=== PATIENT | male | born 1940 | race Caucasian/White ===

== ENCOUNTER 2021-09-20 16:10 | Inpatient (IN) ==
[2021-09-20] MEDS ORDERED: *HR* OxyCODONE Immed Rel 5 MG TABLET PO PRN (17:48)
[2021-09-20] MEDS: CARBIDOPA PO SCH ×2 (18:03→21:08)
[2021-09-20] MEDS: LEVODOPA PO SCH ×2 (18:03→21:08)
[2021-09-20] MEDS ORDERED: Melatonin 3 MG TABLET PO SCH (21:00)
[2021-09-20] MEDS ORDERED: Carbidopa/Levodopa [Rytary Er 36.25 Mg-145 Mg Cap] PO SCH (21:00)
[2021-09-20] MEDS: Apixaban 2.5 MG TABLET PO SCH (21:08)
[2021-09-20] MEDS: Acetaminophen 325 MG TABLET PO PRN (21:18)
[2021-09-21] MEDS: Acetaminophen 325 MG TABLET PO PRN ×2 (03:31→21:00)
[2021-09-21 04:55] LABS: Basophils % 0.4 %; Eosinophils # 0.3 K/mcL (0.0-0.6); Eosinophils % 2.5 %; Hemoglobin 11.9 g/dL (12.9-16.9); Immature Granulocytes % 1.1 % (0-4); Lymphocytes # 1.3 K/mcL (0.6-4.6); Lymphocytes % 12.3 %; Mean Corpuscular HGB Conc 33.1 g/dL (31.6-35.5); Mean Corpuscular Hemoglobin 31.2 pg (28.0-33.3); Mean Corpuscular Volume 94.5 fL (83.0-100.0); Monocytes # 1.3 K/mcL (0.0-1.3); Neutrophils # 7.2 K/mcL (1.6-8.9); Platelet Count 277 K/mcL (140-400); Red Blood Count 3.81 M/mcL (4.19-5.50); Red Cell Distribution Width 12.9 % (11.5-14.5); Segmented Neutrophils % 70.7 %; White Blood Count 10.2 K/mcL (4.3-11.1)
[2021-09-21 05:07] LABS: BUN/Creatinine Ratio 38 (6-26); Blood Urea Nitrogen 26 mg/dL (8-23); Calcium 8.5 mg/dL (8.6-10.3); Carbon Dioxide 27 mEq/L (23-29); Chloride 104 mEq/L (98-107); Glucose 111 mg/dL (70-105); Osmolality,Calculated 293 (280-300); Potassium 3.8 mEq/L (3.5-5.1); Sodium 139 mEq/L (136-145); eGFR For African Americans > 60 (> 60); eGFR For Non-African Americans > 60 (> 60)
[2021-09-21] MEDS: CARBIDOPA PO SCH ×4 (08:46→21:00)
[2021-09-21] MEDS: Apixaban 2.5 MG TABLET PO SCH ×2 (08:46→21:00)
[2021-09-21] MEDS: LEVODOPA PO SCH ×4 (08:46→21:00)
[2021-09-21] MEDS: Mirabegron [Myrbetriq] 50 MG Tab.Er.24h PO SCH (08:48)
[2021-09-21] MEDS ORDERED: Melatonin 3 MG TABLET PO SCH (21:00)
[2021-09-21] MEDS: MELATONIN 5MG GUMMY PO SCH (21:02)
[2021-09-22] MEDS: Acetaminophen 325 MG TABLET PO PRN ×3 (06:48→19:57)
[2021-09-22] MEDS: Apixaban 2.5 MG TABLET PO SCH ×2 (08:41→19:57)
[2021-09-22] MEDS: LEVODOPA PO SCH ×4 (08:42→19:58)
[2021-09-22] MEDS: CARBIDOPA PO SCH ×4 (08:42→19:58)
[2021-09-22] MEDS: Mirabegron [Myrbetriq] 50 MG Tab.Er.24h PO SCH (08:44)
[2021-09-22] MEDS: MELATONIN 5MG GUMMY PO SCH (19:59)
[2021-09-23] MEDS: Acetaminophen 325 MG TABLET PO PRN ×2 (05:07→17:28)
[2021-09-23] MEDS: CARBIDOPA PO SCH ×4 (08:43→23:00)
[2021-09-23] MEDS: LEVODOPA PO SCH ×4 (08:43→23:00)
[2021-09-23] MEDS: Apixaban 2.5 MG TABLET PO SCH ×2 (08:43→22:01)
[2021-09-23] MEDS: Mirabegron [Myrbetriq] 50 MG Tab.Er.24h PO SCH (08:44)
[2021-09-23] MEDS: MELATONIN 5MG GUMMY PO SCH (22:03)
[2021-09-24 08:56] LABS: Hematocrit 39.1 % (37.5-50.1); Hemoglobin 12.5 g/dL (12.9-16.9); Mean Corpuscular Hemoglobin 30.7 pg (28.0-33.3); Mean Corpuscular Volume 96.1 fL (83.0-100.0); Mean Platelet Volume 9.7 fL (9.4-12.4); Platelet Count 388 K/mcL (140-400); Red Blood Count 4.07 M/mcL (4.19-5.50); Red Cell Distribution Width 12.7 % (11.5-14.5); White Blood Count 10.5 K/mcL (4.3-11.1)
[2021-09-24 09:08] LABS: Alanine Aminotransferase 12 Units/L (7-52); Albumin 3.1 g/dL (3.5-5.7); Albumin/Globulin Ratio 0.9 (1.1-2.2); Alkaline Phosphatase 198 Units/L (34-104); Aspartate Amino Transferase 61 Units/L (13-39); BUN/Creatinine Ratio 32 (6-26); Bilirubin,Total 0.6 mg/dL (0.3-1.0); Blood Urea Nitrogen 19 mg/dL (8-23); Calcium 8.9 mg/dL (8.6-10.3); Carbon Dioxide 30 mEq/L (23-29); Chloride 101 mEq/L (98-107); Globulin 3.4 g/dL (2.4-3.5); Glucose 104 mg/dL (70-105); Osmolality,Calculated 293 (280-300); Potassium 3.8 mEq/L (3.5-5.1); Sodium 140 mEq/L (136-145); Total Protein 6.5 g/dL (6.4-8.9); eGFR For African Americans > 60 (> 60); eGFR For Non-African Americans > 60 (> 60)
[2021-09-24] MEDS: CARBIDOPA PO SCH ×4 (09:25→19:27)
[2021-09-24] MEDS: Apixaban 2.5 MG TABLET PO SCH ×2 (09:25→19:27)
[2021-09-24] MEDS: LEVODOPA PO SCH ×4 (09:25→19:27)
[2021-09-24] MEDS: Mirabegron [Myrbetriq] 50 MG Tab.Er.24h PO SCH (09:27)
[2021-09-24] MEDS: MELATONIN 5MG GUMMY PO SCH (19:27)
[2021-09-24] MEDS: Acetaminophen 325 MG TABLET PO PRN (19:27)
[2021-09-24 20:22] LABS: Bilirubin,Urine Negative (Negative); Blood,Urine Negative (Negative); Clarity,Urine Clear (Clear); Color,Urine Yellow (Yellow); Glucose,Urine (UA) 100 mg/dL (Normal); Ketones,Urine Trace mg/dL (Negative); Leukocyte Esterase,Urine Negative (Negative); Nitrite,Urine Negative (Negative); PH,Urine 5.5 pH Units (5.0-8.0); Protein,Urine Negative (Neg-Trace); Urobilinogen,Urine Normal (Normal)
[2021-09-25] MEDS: Apixaban 2.5 MG TABLET PO SCH ×2 (09:11→20:45)
[2021-09-25] MEDS: CARBIDOPA PO SCH ×4 (09:14→20:46)
[2021-09-25] MEDS: LEVODOPA PO SCH ×4 (09:14→20:46)
[2021-09-25] MEDS: Acetaminophen 325 MG TABLET PO PRN (20:45)
[2021-09-25] MEDS: MELATONIN 5MG GUMMY PO SCH (20:51)
[2021-09-26] MEDS: Apixaban 2.5 MG TABLET PO SCH ×2 (08:29→21:32)
[2021-09-26] MEDS: Acetaminophen 325 MG TABLET PO PRN ×2 (08:30→21:31)
[2021-09-26] MEDS: Mirabegron [Myrbetriq] 50 MG Tab.Er.24h PO SCH (08:31)
[2021-09-26] MEDS: CARBIDOPA PO SCH ×4 (08:31→21:33)
[2021-09-26] MEDS: LEVODOPA PO SCH ×4 (08:31→21:33)
[2021-09-26] MEDS: MELATONIN 5MG GUMMY PO SCH (21:32)
[2021-09-27] MEDS: CARBIDOPA PO SCH ×4 (07:19→21:59)
[2021-09-27] MEDS: LEVODOPA PO SCH ×4 (07:19→21:59)
[2021-09-27] MEDS: Apixaban 2.5 MG TABLET PO SCH ×2 (07:19→21:58)
[2021-09-27] MEDS: Mirabegron [Myrbetriq] 50 MG Tab.Er.24h PO SCH (10:34)
[2021-09-27] MEDS: Finasteride 5 MG TABLET PO SCH (12:51)
[2021-09-27] MEDS: MELATONIN 5MG GUMMY PO SCH (21:59)
[2021-09-28] MEDS: Finasteride 5 MG TABLET PO SCH (08:45)
[2021-09-28] MEDS: CARBIDOPA PO SCH ×4 (08:46→22:22)
[2021-09-28] MEDS: LEVODOPA PO SCH ×4 (08:46→22:22)
[2021-09-28] MEDS: Apixaban 2.5 MG TABLET PO SCH ×2 (08:46→22:03)
[2021-09-28] MEDS: Mirabegron [Myrbetriq] 50 MG Tab.Er.24h PO SCH (08:49)
[2021-09-28] MEDS: Acetaminophen 325 MG TABLET PO PRN (22:15)
[2021-09-28] MEDS: MELATONIN 5MG GUMMY PO SCH (22:22)
[2021-09-29] MEDS: Nystatin POWDER 30 GM BOTTLE TP SCH ×4 (02:09→20:34)
[2021-09-29] MEDS: Acetaminophen 325 MG TABLET PO PRN (08:47)
[2021-09-29] MEDS: Finasteride 5 MG TABLET PO SCH (08:47)
[2021-09-29] MEDS: Apixaban 2.5 MG TABLET PO SCH ×2 (08:48→20:33)
[2021-09-29] MEDS: CARBIDOPA PO SCH ×4 (08:50→20:35)
[2021-09-29] MEDS: LEVODOPA PO SCH ×4 (08:50→20:35)
[2021-09-29] MEDS: Mirabegron [Myrbetriq] 50 MG Tab.Er.24h PO SCH (08:52)
[2021-09-29] MEDS ORDERED: *HR* OxyCODONE Immed Rel 5 MG TABLET PO PRN (15:48)
[2021-09-29 16:09] LABS: Basophils # 0.1 K/mcL (0.0-0.2); Basophils % 0.5 %; Eosinophils # 0.4 K/mcL (0.0-0.6); Eosinophils % 3.2 %; Hematocrit 36.9 % (37.5-50.1); Hemoglobin 11.8 g/dL (12.9-16.9); Immature Granulocytes % 3.5 % (0-4); Lymphocytes # 1.9 K/mcL (0.6-4.6); Lymphocytes % 17.6 %; Mean Corpuscular Volume 96.9 fL (83.0-100.0); Mean Platelet Volume 9.4 fL (9.4-12.4); Monocytes # 0.7 K/mcL (0.0-1.3); Monocytes % 6.4 %; Neutrophils # 7.4 K/mcL (1.6-8.9); Platelet Count 408 K/mcL (140-400); Red Blood Count 3.81 M/mcL (4.19-5.50); Red Cell Distribution Width 13.2 % (11.5-14.5); Segmented Neutrophils % 68.8 %; White Blood Count 10.8 K/mcL (4.3-11.1)
[2021-09-29 16:27] LABS: BUN/Creatinine Ratio 26 (6-26); Blood Urea Nitrogen 22 mg/dL (8-23); Calcium 9.2 mg/dL (8.6-10.3); Carbon Dioxide 31 mEq/L (23-29); Chloride 101 mEq/L (98-107); Glucose 113 mg/dL (70-105); Osmolality,Calculated 288 (280-300); Potassium 4.5 mEq/L (3.5-5.1); Sodium 137 mEq/L (136-145); eGFR For African Americans > 60 (> 60); eGFR For Non-African Americans > 60 (> 60)
[2021-09-29] MEDS: MELATONIN 5MG GUMMY PO SCH (20:35)
[2021-09-30] MEDS: Apixaban 2.5 MG TABLET PO SCH ×2 (09:12→21:01)
[2021-09-30] MEDS: Finasteride 5 MG TABLET PO SCH (09:13)
[2021-09-30] MEDS: Nystatin POWDER 30 GM BOTTLE TP SCH ×3 (09:13→21:02)
[2021-09-30] MEDS: CARBIDOPA PO SCH ×4 (09:14→21:01)
[2021-09-30] MEDS: LEVODOPA PO SCH ×4 (09:14→21:01)
[2021-09-30] MEDS: Mirabegron [Myrbetriq] 50 MG Tab.Er.24h PO SCH (09:15)
[2021-09-30] MEDS: Acetaminophen 325 MG TABLET PO PRN (21:01)
[2021-09-30] MEDS: MELATONIN 5MG GUMMY PO SCH (21:02)
[2021-10-01] MEDS: CARBIDOPA PO SCH ×4 (08:49→19:49)
[2021-10-01] MEDS: Apixaban 2.5 MG TABLET PO SCH ×2 (08:49→19:47)
[2021-10-01] MEDS: LEVODOPA PO SCH ×4 (08:49→19:49)
[2021-10-01] MEDS: Finasteride 5 MG TABLET PO SCH (08:49)
[2021-10-01] MEDS: Mirabegron [Myrbetriq] 50 MG Tab.Er.24h PO SCH (08:50)
[2021-10-01] MEDS: Nystatin POWDER 30 GM BOTTLE TP SCH ×3 (08:50→19:49)
[2021-10-01 13:54] LABS: Bilirubin,Urine Negative (Negative); Blood,Urine Small (Negative); Clarity,Urine Clear (Clear); Color,Urine Yellow (Yellow); Glucose,Urine (UA) Normal (Normal); Ketones,Urine Trace mg/dL (Negative); Leukocyte Esterase,Urine Negative (Negative); Nitrite,Urine Negative (Negative); Protein,Urine Negative (Neg-Trace); Urobilinogen,Urine Normal (Normal)
[2021-10-01 14:09] LABS: WBC,Urine 0-3 per hpf (0-3)
[2021-10-01 14:10] LABS: Bacteria,Urine Few per hpf (None-Few); Squamous Epithelial Cell,Urine Few per hpf (None-Few)
[2021-10-01 14:12] LABS: Calcium Oxalate Crystals,Urine Present per hpf
[2021-10-01] MEDS: Polymyxn-B/Trimeth Opth Drops 10 ML BOTTLE LEFT EYE SCH ×2 (16:06→19:50)
[2021-10-01] MEDS: Acetaminophen 325 MG TABLET PO PRN (19:47)
[2021-10-01] MEDS: MELATONIN 5MG GUMMY PO SCH (19:49)
[2021-10-02] MEDS: Finasteride 5 MG TABLET PO SCH (08:44)
[2021-10-02] MEDS: Apixaban 2.5 MG TABLET PO SCH ×2 (08:44→20:18)
[2021-10-02] MEDS: Mirabegron [Myrbetriq] 50 MG Tab.Er.24h PO SCH (08:45)
[2021-10-02] MEDS: Nystatin POWDER 30 GM BOTTLE TP SCH ×3 (08:45→20:19)
[2021-10-02] MEDS: Polymyxn-B/Trimeth Opth Drops 10 ML BOTTLE LEFT EYE SCH ×2 (08:45→12:16)
[2021-10-02] MEDS ORDERED: CARBIDOPA PO SCH (09:00)
[2021-10-02] MEDS ORDERED: LEVODOPA PO SCH (09:00)
[2021-10-02] MEDS: CARBIDOPA PO SCH ×3 (12:16→20:20)
[2021-10-02] MEDS: LEVODOPA PO SCH ×3 (12:16→20:20)
[2021-10-02] MEDS: Polymyxn-B/Trimeth Opth Drops 10 ML BOTTLE BOTH EYES SCH ×2 (17:08→20:20)
[2021-10-02] MEDS: Sennosides/Docusate Sodium TABLET PO SCH ×2 (17:08→20:18)
[2021-10-02 18:04] LABS: % Iron Saturation 15 % (20-55); Iron 44 mcg/dL (65-175); Transferrin 206 mg/dL (203-362)
[2021-10-02] MEDS: MELATONIN 5MG GUMMY PO SCH (20:20)
[2021-10-03] MEDS: LEVODOPA PO SCH ×4 (05:49→23:09)
[2021-10-03] MEDS: CARBIDOPA PO SCH ×4 (05:49→23:09)
[2021-10-03] MEDS: Apixaban 2.5 MG TABLET PO SCH ×2 (08:34→23:08)
[2021-10-03] MEDS: Sennosides/Docusate Sodium TABLET PO SCH ×2 (08:35→18:47)
[2021-10-03] MEDS: Finasteride 5 MG TABLET PO SCH (08:35)
[2021-10-03] MEDS: Polymyxn-B/Trimeth Opth Drops 10 ML BOTTLE BOTH EYES SCH ×4 (08:36→23:09)
[2021-10-03] MEDS: Mirabegron [Myrbetriq] 50 MG Tab.Er.24h PO SCH (08:36)
[2021-10-03] MEDS: Nystatin POWDER 30 GM BOTTLE TP SCH ×3 (08:37→23:09)
[2021-10-03] MEDS: MELATONIN 5MG GUMMY PO SCH (23:09)
[2021-10-04] MEDS: CARBIDOPA PO SCH ×4 (06:14→20:59)
[2021-10-04] MEDS: LEVODOPA PO SCH ×4 (06:14→20:59)
[2021-10-04] MEDS: Finasteride 5 MG TABLET PO SCH (08:00)
[2021-10-04] MEDS: Apixaban 2.5 MG TABLET PO SCH ×2 (08:00→20:57)
[2021-10-04] MEDS: Sennosides/Docusate Sodium TABLET PO SCH ×2 (08:00→20:57)
[2021-10-04] MEDS: Mirabegron [Myrbetriq] 50 MG Tab.Er.24h PO SCH (08:01)
[2021-10-04] MEDS: Nystatin POWDER 30 GM BOTTLE TP SCH ×3 (08:01→20:58)
[2021-10-04] MEDS: Polymyxn-B/Trimeth Opth Drops 10 ML BOTTLE BOTH EYES SCH ×4 (08:02→21:00)
[2021-10-04] MEDS: Acetaminophen 325 MG TABLET PO PRN (20:57)
[2021-10-04] MEDS: MELATONIN 5MG GUMMY PO SCH (20:59)
[2021-10-05] MEDS: CARBIDOPA PO SCH ×4 (05:51→20:53)
[2021-10-05] MEDS: LEVODOPA PO SCH ×4 (05:51→20:53)
[2021-10-05] MEDS: Apixaban 2.5 MG TABLET PO SCH ×2 (09:44→20:54)
[2021-10-05] MEDS: Finasteride 5 MG TABLET PO SCH (09:44)
[2021-10-05] MEDS: Sennosides/Docusate Sodium TABLET PO SCH ×2 (09:45→21:50)
[2021-10-05] MEDS: Mirabegron [Myrbetriq] 50 MG Tab.Er.24h PO SCH (09:46)
[2021-10-05] MEDS: Nystatin POWDER 30 GM BOTTLE TP SCH ×3 (09:50→20:51)
[2021-10-05] MEDS: Polymyxn-B/Trimeth Opth Drops 10 ML BOTTLE BOTH EYES SCH ×4 (09:51→20:56)
[2021-10-05] MEDS: MELATONIN 5MG GUMMY PO SCH (20:55)
[2021-10-06] MEDS: LEVODOPA PO SCH ×4 (05:25→21:26)
[2021-10-06] MEDS: CARBIDOPA PO SCH ×4 (05:25→21:26)
[2021-10-06 07:24] LABS: Hematocrit 34.5 % (37.5-50.1); Hemoglobin 11.1 g/dL (12.9-16.9); Mean Corpuscular HGB Conc 32.2 g/dL (31.6-35.5); Mean Corpuscular Hemoglobin 30.7 pg (28.0-33.3); Mean Corpuscular Volume 95.6 fL (83.0-100.0); Mean Platelet Volume 9.9 fL (9.4-12.4); Platelet Count 414 K/mcL (140-400); Red Blood Count 3.61 M/mcL (4.19-5.50); Red Cell Distribution Width 13.2 % (11.5-14.5); White Blood Count 6.9 K/mcL (4.3-11.1)
[2021-10-06 08:02] LABS: Alanine Aminotransferase 5 Units/L (7-52); Albumin 3.2 g/dL (3.5-5.7); Alkaline Phosphatase 137 Units/L (34-104); Aspartate Amino Transferase 21 Units/L (13-39); BUN/Creatinine Ratio 28 (6-26); Bilirubin,Total 0.5 mg/dL (0.3-1.0); Blood Urea Nitrogen 23 mg/dL (8-23); Calcium 9.6 mg/dL (8.6-10.3); Carbon Dioxide 32 mEq/L (23-29); Chloride 99 mEq/L (98-107); Globulin 3.2 g/dL (2.4-3.5); Glucose 93 mg/dL (70-105); Magnesium 2.1 mg/dL (1.6-2.6); Osmolality,Calculated 285 (280-300); Potassium 4.2 mEq/L (3.5-5.1); Sodium 136 mEq/L (136-145); Total Protein 6.4 g/dL (6.4-8.9); eGFR For African Americans > 60 (> 60); eGFR For Non-African Americans > 60 (> 60)
[2021-10-06] MEDS: Finasteride 5 MG TABLET PO SCH (08:02)
[2021-10-06] MEDS: Apixaban 2.5 MG TABLET PO SCH ×2 (08:02→21:26)
[2021-10-06] MEDS: Sennosides/Docusate Sodium TABLET PO SCH ×2 (08:03→21:27)
[2021-10-06] MEDS: Nystatin POWDER 30 GM BOTTLE TP SCH ×3 (08:03→21:26)
[2021-10-06] MEDS: Polymyxn-B/Trimeth Opth Drops 10 ML BOTTLE BOTH EYES SCH ×3 (08:03→17:32)
[2021-10-06] MEDS: Mirabegron [Myrbetriq] 50 MG Tab.Er.24h PO SCH (08:03)
[2021-10-06] MEDS: MELATONIN 5MG GUMMY PO SCH (21:27)
[2021-10-07] MEDS: CARBIDOPA PO SCH ×4 (05:24→21:13)
[2021-10-07] MEDS: LEVODOPA PO SCH ×4 (05:24→21:13)
[2021-10-07] MEDS: Nystatin POWDER 30 GM BOTTLE TP SCH ×3 (08:20→20:34)
[2021-10-07] MEDS: Finasteride 5 MG TABLET PO SCH (08:20)
[2021-10-07] MEDS: Apixaban 2.5 MG TABLET PO SCH ×2 (08:20→21:13)
[2021-10-07] MEDS: Mirabegron [Myrbetriq] 50 MG Tab.Er.24h PO SCH (08:20)
[2021-10-07] MEDS: Sennosides/Docusate Sodium TABLET PO SCH ×2 (08:20→21:13)
[2021-10-07] MEDS: MELATONIN 5MG GUMMY PO SCH (21:14)
[2021-10-08] MEDS: CARBIDOPA PO SCH ×4 (05:16→20:39)
[2021-10-08] MEDS: LEVODOPA PO SCH ×4 (05:16→20:39)
[2021-10-08] MEDS: Finasteride 5 MG TABLET PO SCH (08:59)
[2021-10-08] MEDS: Apixaban 2.5 MG TABLET PO SCH ×2 (08:59→20:39)
[2021-10-08] MEDS: Ascorbic Acid 500 MG TABLET PO SCH (08:59)
[2021-10-08] MEDS: Sennosides/Docusate Sodium TABLET PO SCH ×2 (08:59→20:39)
[2021-10-08] MEDS: Mirabegron [Myrbetriq] 50 MG Tab.Er.24h PO SCH (09:01)
[2021-10-08] MEDS: Nystatin POWDER 30 GM BOTTLE TP SCH ×3 (13:15→20:39)
[2021-10-08] MEDS: MELATONIN 5MG GUMMY PO SCH (20:40)
[2021-10-09] MEDS: LEVODOPA PO SCH ×4 (06:25→20:08)
[2021-10-09] MEDS: CARBIDOPA PO SCH ×4 (06:25→20:08)
[2021-10-09 07:42] VITALS: RESP 15
[2021-10-09] MEDS: Apixaban 2.5 MG TABLET PO SCH ×2 (07:43→20:07)
[2021-10-09] MEDS: Ascorbic Acid 500 MG TABLET PO SCH (07:43)
[2021-10-09] MEDS: Sennosides/Docusate Sodium TABLET PO SCH ×2 (07:43→20:08)
[2021-10-09] MEDS: Finasteride 5 MG TABLET PO SCH (07:43)
[2021-10-09] MEDS: Nystatin POWDER 30 GM BOTTLE TP SCH ×3 (07:43→20:08)
[2021-10-09] MEDS: Mirabegron [Myrbetriq] 50 MG Tab.Er.24h PO SCH (07:44)
[2021-10-09] MEDS: MELATONIN 5MG GUMMY PO SCH (20:08)
[2021-10-09] MEDS: Acetaminophen 325 MG TABLET PO PRN (20:08)
[2021-10-10] MEDS: Acetaminophen 325 MG TABLET PO PRN (02:24)
[2021-10-10] MEDS: CARBIDOPA PO SCH ×3 (05:52→13:26)
[2021-10-10] MEDS: LEVODOPA PO SCH ×3 (05:52→13:26)
[2021-10-10 07:37] VITALS: BP 105/68; PULSE 67; TEMP 98.5; O2SAT 98
[2021-10-10] MEDS: Finasteride 5 MG TABLET PO SCH (08:38)
[2021-10-10] MEDS: Sennosides/Docusate Sodium TABLET PO SCH (08:38)
[2021-10-10] MEDS: Apixaban 2.5 MG TABLET PO SCH (08:38)
[2021-10-10] MEDS: Ascorbic Acid 500 MG TABLET PO SCH (08:38)
[2021-10-10] MEDS: Mirabegron [Myrbetriq] 50 MG Tab.Er.24h PO SCH (08:39)
[2021-10-10] MEDS: Nystatin POWDER 30 GM BOTTLE TP SCH ×2 (09:21→13:27)
== END 2021-10-10 15:30 | disposition home health service (06) | DRG 559 ==
LOC: INPGRE 16:50
PROVIDERS: ADMIT Family Medicine; ATTEND Family Medicine